=== PATIENT | female | born 1995 | race Caucasian/White ===

== ENCOUNTER 2017-06-22 19:45 | Inpatient (IN) | payer OTHER ==
[~2017-06-22] VITALS: Ht 152.4 cm; Wt 55.3 kg
[~2017-06-22 19:45] MED LIST: CEPHALEXIN500 MG PO
[2017-06-22 20:52] VITALS: BP 120/75
[2017-06-22 20:55] LABS: ABSOLUTE BASOPHIL COUNT 0 /CUMM (0.0-0.2); ABSOLUTE EOSINOPHIL COUNT 0.1 /CUMM (0.0-0.7); ABSOLUTE GRANULOCYTE CT 12.6 /CUMM (1.4-6.5); ABSOLUTE LYMPH COUNT 1.3 /CUMM (1.2-3.4); ABSOLUTE MONOCYTE COUNT 0.7 /CUMM (0.10-0.60); BASOPHIL % 0.1 % (0.0-2.0); EOSINOPHIL % 0.4 % (0-5); HEMATOCRIT 35.1 % (37-47); MEAN CORPUSCULAR HGB 32.3 PG (27.0-31.0); MEAN CORPUSCULAR HGB CONC 33.6 G/DL (33.0-37.0); MEAN CORPUSCULAR VOLUME 95.9 FL (81.0-99.0); MEAN PLATELET VOLUME 6.9 FL (7.4-10.4); PLATELET COUNT 249 /CUMM (130-400); RBC DISTRIBUTION WIDTH 12.9 % (11.5-14.5); RED BLOOD CELL CT 3.66 /CUMM (4.20-5.40); WHITE BLOOD CELL COUNT 14.8 /CUMM (4.8-10.8)
[2017-06-22 21:19] LABS: GRANULOCYTE % 85.6 % (42.2-75.2)
--- NOTE | 2017-06-22 23:46 | History & Physical ---
General Information and HPI MD Statement: I have seen and personally examined THONG MULLIGAN and documented this H&P. The patient is a 22 year old female at 39 weeks and 0 days gestation who presented with a chief complaint of CTX. Source of Information: patient, old records Exam Limitations: no limitations History of Present Illness: Patient is a 22 year old female with complicated by late transfer and RH negative status who presents in early labor. Patient was seen at Dr Kay's office today and was 2 cm. On arrival patient reported more frequent contractions and was found to be 3-4 cm. 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 Last Menstrual Period: 09/22/16 Estimated Delivery Date: NELLA 06/29/17 Past middle school teacher History: none Past Pregnancies Past Pregnancies: Date of Delivery: 07/2016 Gestational Age: Vtop Medical History Blood Transfusion Hx: No Neurological: NONE EENT: NONE Cardiovascular: NONE Respiratory: NONE Gastrointestinal: NONE Hepatic: NONE Renal: NONE Musculoskeletal: NONE Psychiatric: NONE Endocrine: NONE Blood Disorders: NONE Cancer(s): NONE TRACTOR TRAILER TECHNICIAN/Reproductive: chlamydia Surgical History Pertinent Surgical History: Vtop x 1 Past Family/Social History Psychosocial History Where do you live? Home Who Do You Live With? spouse Primary Language: Grenadian Smoking Status: Current Everyday Smoker ETOH Use: denies use Illicit Drug Use: denies illicit drug use Living Will? unknown Power of Personal Carer/HCP? unknown Employment History Employment Unemployed Review of Systems Review of Systems Constitutional: Denies: no symptoms. EENTM: Denies: no symptoms. Cardiovascular: Denies: no symptoms. Respiratory: Denies: no symptoms. GI: Denies: no symptoms. Genitourinary: Denies: no symptoms. Musculoskeletal: Denies: no symptoms. Skin: Denies: no symptoms. Neurological/Psychological: Denies: no symptoms, unable to move lower ext, unable to move upper ext, weakness, other. Hematologic/Endocrine: Denies: no symptoms. Immunologic/Allergic: Denies: no symptoms. All Other Systems: Reviewed and Negative Date of LMP: 09/22/16 Exam & Diagnostic Data Last 24 Hrs of Vital Signs/I&O Vital Signs Date Time Temp Pulse Resp B/P B/P Pulse O2 O2 Flow FiO2 Mean Ox Delivery Rate 06/22 2051 120/75 Obstetric Exam Wgt Gained During : Limited records available for review Pelvimetry: Gynecoid Dilation (cm): 4 Effacement (%): 100 Station: 0 Membranes: intact Fluid: Intact BOW Fundal Height (cm): 38 Multiple Gestation? No Contractions: q 2-3 Infant #1 - FHR Baseline: 140 Category: 1 Estimated Weight: 3200 Presentation: Cephalic Patient for Induction? No Coker Score Coker Score Response Value Cervix Position: mid-position 1 Cervix Consistency: soft 2 Cervix Effacement: >80% 3 Cervix Dilation: 3-4 cm 2 Total 8 Physical Exam General Appearance Alert, Oriented X3, Cooperative, Mild Distress Skin No Rashes HEENT Atraumatic Neck Supple Cardiovascular Regular Rate Lungs Normal Air Movement Abdomen Soft Neurological Normal Gait, Normal Speech, Strength at 5/5 X4 Ext, Normal Tone, Sensation Intact Extremities No Edema Breasts Breast appear nl Reproductive (FEMALE) Normal female genitalia Labs Blood Type & Rh: A negative Antibody Screen: negative Hct/Hgb & Platelets #1: 35.2 Hct/Hgb & Platelets #2: pending Rubella: immune VDRL #1: negative VDRL #2: pending HbsAg: negative HIV #1: negative HIV #2 pending 1 Hr P 3 Hr PG: No 3 hour documented Group B Strep: negative Initial Ultrasound: No records Anatomy Ultrasound: no records Ultrasound for EFW: no records Genetic Testing: Too late for testing Last 24 Hrs of Labs/Naveed: Laboratory Tests 06/22/17 2020: CBC w Diff NO MAN DIFF REQ, RBC 3.66 L, MCV 95.9, MCH 32.3 H, RDW 12.9, MPV 6.9 L, Gran % 85.6 H, Lymphocytes % 9.0 L, Monocytes % 4.9, Eosinophils % 0.4 , Basophils % 0.1, Absolute Granulocytes 12.6 H, Absolute Lymphocytes 1.3, Absolute Monocytes 0.7 H, Absolute Eosinophils 0.1, Absolute Basophils 0, PUBS MCHC 33.6, RPR Titer/FTA Pending 06/22/17 2015: Hemoglobin A1c Pending, HIV 1&2 Ab Western Blot NONREACTIVE, Urine Opiates Screen 842.00, Methadone Screen < 40, Barbiturate Screen < 60, Ur Phencyclidine Scrn < 6.00, Amphetamines Screen < 100, U Benzodiazepines Scrn < 85, Urine Cocaine Screen < 50, Urine Cannabis Screen 19.10, Urine Color YEL, Urine Clarity CLEAR, Urine pH 7.0, Ur Specific Murray 1.020, Urine Protein NEG, Urine Ketones NEG, Urine Nitrite NEG, Urine Bilirubin NEG, Urine Urobilinogen 0.2, Ur Leukocyte Esterase TRACE H, Ur Microscopic SEDIMENT EXAMINED, Urine RBC 3-5, Urine WBC 3-5 H, Ur Epithelial Cells MANY H, Urine Bacteria MANY H, Urine Hemoglobin MOD H, Urine Glucose NEG Assessment/Plan Assessment/Plan: Patient is a 22 year old para 0 at term in early labor. GBBS negative. No findings of gestational hypertension. patient with plan as well. 1) Nursing team and I reviewed plan and I see no issue with allowing a majority of her requests. We did discuss pain mgmt and she was consented for nitrous and we did discuss epidrual. She has a artificial inseminator present and her partner as well. 2) Peds to discuss vitamin k and erythromycin to eyes but patient doesnt request Hepatitis B. 3) Catagory 1 tracing noted and intermittent monitoring while in early labor. Reassess at 4 hour intervals for cervical change. 4) Consented for vaginal with potential for csection should arrest disorder and or abnormal heart rate warrenting of delivery be encountered. 5) Rh negative and did receive rhogam. Follow up studiees post delivery to determine if needs additional injection. 6) Will discuss if received flu and tdap vaccines. Also given her smoking she is a candidate for pneumovax. Will discuss NRT if she is amenable to avoid risks of tobacco exposure to . 7) At time of writing of this note she is now 5/90/-1. 8) Anticipate vaginal . Allow 30-60 seconds for cord clamping per patient request as long as is vigorous. 9) Treatment plan understood by patient partner and team. As Ranked By This Provider Problem List: 1. Core Measures Venous Thromboembolism VTE Risk Factors / No Mechanical VTE Prophylaxis d/t Early Ambulation No VTE Pharm Prophylaxis d/t Other Attending MD Review Statement Attending Statement Attending MD Statement: examined this patient, discussed with family, discussed w/nursing Attending Assessment/Plan: As above.
--- NOTE | 2017-06-23 02:49 | Labor & Delivery Summary ---
Delivery Summary Vaginal Delivery: Vaginal: vertex Episiotomy/Lacerations: Episiotomy/Lacerations: Second degree left lateral posterior fourchette Type: 2nd degree Repair: Running/locked Anesthesia: 10 cc sensocaine Placenta: Placenta: spontanteous, normal, 3 vessel Anesthesia: Nitrous oxide Cord PH Value: NA Apgars - 1 Min: 9 Apgars - 5 Min: 9 Additional Comments: Delivered through intact perineum. No nuchal cord Shoulders passed spontaneously. Allowed 30 seconds prior to cord clamp Repair done without incident Rectum intact and free of suture EBL 300 cc. Mariano and laurence present.
[2017-06-24] MEDS ORDERED: IBUPROFEN600 M1 PO (09:30)
[2017-06-24] MEDS ORDERED: PRENATAL VITAMINS PO (09:30)
--- NOTE | 2017-06-24 09:35 | PN- OBGYN ---
Surgical Brief Attending Note Brief Attending Note: Seen and evaluated Cramps improved from yesterday and lochia is less. Starting to breast feed. Vitals per paper record Aox3 Lungs claer Abdomen soft and fundus firm Mild lochia Extremities. No homans and no edema noted A/P Ppd#1 Pain mgmt strategies reviewed Tucks pads to perineum as needed Breast feeding counseilng provided Declined flu shot Discussed Tdap with patient and partner Discussed nicotine replacement with patient and partner. Peds discussed with patient issues of Vitamin K. They are opting to give the Vitamin K and then tomorrow to have the circumcision. It was not given yesterday so could not be performed today. DC planning for 06/25/17
== END 2017-06-25 12:15 | DRG 560 ==
LOC: CBCO 19:45 → GNO 20:06
PROVIDERS: Specialist
PROC: 10E0XZZ Delivery of Products of Conception, External Approach (ICD-10-PCS; principal; 2017-06-23)
PROC: 0KQM0ZZ Repair Perineum Muscle, Open Approach (ICD-10-PCS; principal; 2017-06-23)
DX: O70.1 Second degree perineal laceration during delivery (principal); O99.334 Smoking (tobacco) complicating childbirth; F17.200 Nicotine dependence, unspecified, uncomplicated; Z3A.39 39 weeks gestation of pregnancy; Z37.0 Single live birth
CPT/HCPCS: GNOP; GNOS; 36415; 80307; 81001; 86920; 86922; 87389; J1885